=== PATIENT | female | born 1940 | race Caucasian/White ===

== ENCOUNTER 2019-11-21 12:19 | Emergency (ER) | payer MEDICARE ==
[~2019-11-21] VITALS: Ht 152.4 cm; Wt 50.6 kg
[~2019-11-21 12:19] MED LIST: AMLO5TAB PO; ASPI81TA30 PO; CHOL10002 PO; CYAN100019 PO; FOLI1TAB16 PO; HYDR-4383 PO; LACT1CAP65 PO; MONT10TA21 PO; ONDA4TAB6 PO; PRIM50TA PO; THYR120T2 PO
[2019-11-21 13:23] LABS: ALANINE AMINOTRANSFERASE 23 U/L (12-78); ALBUMIN 3.6 G/DL (3.4-5.0); ALBUMIN/GLOBULIN RATIO 0.9 (1.1-1.5); ALKALINE PHOSPHATASE 87 IU/L (46-116); ANION GAP 9 (8-16); ASPARTATE AMINO TRANSFERASE 21 U/L (10-37); BILIRUBIN,TOTAL 0.5 MG/DL (0.1-1.0); BLOOD UREA NITROGEN 13 MG/DL (7-18); BUN/CREATININE RATIO 9.6 (6.6-38.0); CHLORIDE 101 MMOL/L (99-107); CREATININE 1.36 MG/DL (0.40-0.90); GLUCOSE 109 MG/DL (70-104); POTASSIUM 3.5 MMOL/L (3.5-5.1); SODIUM 138 MMOL/L (135-145); TOTAL PROTEIN 7.8 G/DL (6.4-8.2); eGFR 37 ML/MIN
[2019-11-21 13:35] LABS: BASOPHILS % (AUTO) 0.6 % (0-1); EOSINOPHILS # (AUTO) 0.1 X10'3 (0-0.9); EOSINOPHILS % (AUTO) 1.9 % (0-6); HEMATOCRIT 42.6 % (35.0-45.0); HEMOGLOBIN 14.3 g/dl (12.0-16.0); LYMPHOCYTES # (AUTO) 1.4 X10'3 (1.1-4.8); LYMPHOCYTES % (AUTO) 23.8 % (21-51); MEAN CORPUSCULAR HEMOGLOBIN 30.9 PG (27.0-31.0); MEAN CORPUSCULAR HGB CONC 33.5 g/dL (33.0-36.5); MEAN CORPUSCULAR VOLUME 92.2 FL (78-98); MEAN PLATELET VOLUME 9.2 FL (7.4-10.4); MONOCYTES # (AUTO) 0.4 X10'3 (0-0.9); MONOCYTES % (AUTO) 7.5 % (2-12); NEUTROPHILS # (AUTO) 3.9 X10'3 (1.8-7.7); NEUTROPHILS % (AUTO) 66.2 % (42-75); PLATELET COUNT 252 X10'3 (140-440); RED BLOOD COUNT 4.62 X10'6 (4.20-5.60); WHITE BLOOD COUNT 5.9 X10'3 (4.5-11.0)
[2019-11-21 14:02] VITALS: BP 162/72
== END 2019-11-21 14:00 | disposition home or self-care (01) ==
LOC: ER 12:20
DX: I10 Essential (primary) hypertension (principal); E03.9 Hypothyroidism, unspecified; Z87.442 Personal history of urinary calculi; Z79.899 Other long term (current) drug therapy; Z79.82 Long term (current) use of aspirin
CPT/HCPCS: 36415; 71045; 80053; 84484; 85025; 93005; 99285

== ENCOUNTER 2020-02-19 08:00 | Day surgery (SDC) | payer MEDICARE ==
[2020-02-12 15:45] LABS: BASOPHILS % (AUTO) 0.8 % (0-1); EOSINOPHILS % (AUTO) 0.3 % (0-6); LYMPHOCYTES # (AUTO) 1.4 X10'3 (1.1-4.8); LYMPHOCYTES % (AUTO) 30.9 % (21-51); MEAN CORPUSCULAR HEMOGLOBIN 31.8 PG (27.0-31.0); MEAN CORPUSCULAR HGB CONC 33.5 g/dL (33.0-36.5); MEAN PLATELET VOLUME 8.6 FL (7.4-10.4); MONOCYTES # (AUTO) 0.5 X10'3 (0-0.9); MONOCYTES % (AUTO) 11.8 % (2-12); NEUTROPHILS # (AUTO) 2.5 X10'3 (1.8-7.7); NEUTROPHILS % (AUTO) 56.2 % (42-75); PRE OP HEMATOCRIT 39.8 % (35.0-45.0); PRE OP HEMOGLOBIN 13.3 g/dL (12.0-16.0); PRE OP PLATELET COUNT 230 X10'3 (140-440); RED BLOOD COUNT 4.19 X10'6 (4.20-5.60); RED CELL DISTRIBUTION WIDTH 12.9 % (11.5-14.5)
[2020-02-12 16:02] LABS: ALBUMIN 3.9 G/DL (3.4-5.0); ALKALINE PHOSPHATASE 80 IU/L (46-116); BLOOD UREA NITROGEN 14 MG/DL (7-18); BUN/CREATININE RATIO 12.5 (6.6-38.0); CALCIUM 8.9 MG/DL (8.5-10.1); CHLORIDE 101 MMOL/L (99-107); CREATININE 1.12 MG/DL (0.40-0.90); PRE OP ALT 25 U/L (30-65); PRE OP ANION GAP 6 (8-16); PRE OP AST 24 U/L (10-37); PRE OP BILIRUB, TOTAL 0.5 MG/DL (0.0-1.0); PRE OP GLUCOSE 94 MG/DL (70-104); PRE OP POTASSIUM 4.3 MMOL/L (3.4-5.1); PRE OP SODIUM 137 MMOL/L (135-145); TOTAL CARBON DIOXIDE 30.1 MMOL/L (24-32); TOTAL PROTEIN 7.9 G/DL (6.4-8.2); eGFR 47 ML/MIN
[~2020-02-19] VITALS: Ht 152.4 cm; Wt 50.9 kg
[~2020-02-19 08:00] MED LIST changes: -ASPI81TA30 PO; +BUPIVAcaine/PF 2.5 mg/ml (0.25%) 30ml vial ONE; +CETI10CA19 PO; -CHOL10002 PO; -CYAN100019 PO; -FOLI1TAB16 PO; -HYDR-4383 PO; +INHALER; +LEVO25TA7 PO; -MONT10TA21 PO; -ONDA4TAB6 PO; -PRIM50TA PO; +SULF500T46 PO; +SUMA25TA9 PO; -THYR120T2 PO; +TRAZ-251 PO; +[UNRECOGNIZED DRUG - CODE]; +ceFAZolin 2gm in dextrose, iso 50 ML IV ONE; +famotidine 10mg tablet PO ONE; +ringers solution, lacted 1,000 ML IV SCH
[2020-02-19] MEDS ORDERED: morphine 2 MG/ML inj. syringe IV PRN (08:25)
[2020-02-19] MEDS ORDERED: proCHLORperazine 10 MG/2 ml inj IV PRN (08:25)
[2020-02-19] MEDS ORDERED: ringers solution, lacted 1,000 ML IV SCH (08:25)
[2020-02-19] MEDS ORDERED: meperidine/PF 25mg/ml syringe IV PRN ×2 (08:25)
[2020-02-19] MEDS ORDERED: ondansetron/PF 4mg/2ml inj IV PRN (08:25)
[2020-02-19] MEDS ORDERED: LIDOcaine 0.5% (5mg/ml) 50ml vial ONE (11:27)
[2020-02-19] MEDS ORDERED: fentaNYL/PF 50MCG/1 ML 2ML syringe ONE (11:28)
[2020-02-19] MEDS ORDERED: propofol inj 20 ML IV ONE (11:48)
[2020-02-19 11:51] VITALS: BP 154/77
[2020-02-19 11:57] VITALS: BP 154/77
[2020-02-19 12:02] VITALS: BP 162/80
--- NOTE | 2020-02-19 12:02 | NUR ---
Received from OR via , accompanied by Anesthesiologist DR AGGARWAL and report given by Anesthesiolgist. AWAKENS TO VOICE. VITALS STABLE.ENZO PAIN. FINGERS COOL AND PINK.DRESSING DI.
[2020-02-19 12:12] VITALS: BP 153/76
[2020-02-19 12:22] VITALS: BP 167/79
[2020-02-19 12:32] VITALS: BP 165/78
--- NOTE | 2020-02-19 12:42 | NUR ---
AWAKE AND ORIENTED. VITALS STABLE. DRESSING DI. ENZO PAIN. HOME WITH HER SON AT TGHIS TIME.
== END 2020-02-19 12:42 | disposition home or self-care (01) ==
LOC: PAS 08:00
PROVIDERS: ATTEND Orthopaedic Surgery Hand Surgery
DX: G56.01 Carpal tunnel syndrome, right upper limb (principal); J45.909 Unspecified asthma, uncomplicated; I10 Essential (primary) hypertension; M18.12 Unilateral primary osteoarthritis of first carpometacarpal joint, left hand; E03.9 Hypothyroidism, unspecified; Z88.8 Allergy status to other drugs, medicaments and biological substances; Z91.09 Other allergy status, other than to drugs and biological substances; Z91.011 Allergy to milk products; Z98.890 Other specified postprocedural states; Z79.899 Other long term (current) drug therapy; Z20.828 Contact with and (suspected) exposure to other viral communicable diseases; Z87.891 Personal history of nicotine dependence; Z79.82 Long term (current) use of aspirin; Z88.2 Allergy status to sulfonamides; Z90.710 Acquired absence of both cervix and uterus; Z72.89 Other problems related to lifestyle
CPT/HCPCS: 36415; 64721; 80053; 82948; 85025; 87635; A6222; J2001; J2704; J3010; J3490; A4215; A6449; J7120

== ENCOUNTER 2020-03-18 08:04 | Day surgery (SDC) | payer MEDICARE ==
[2020-03-11 15:19] LABS: EOSINOPHILS % (AUTO) 0 % (0-6); LYMPHOCYTES # (AUTO) 1.4 X10'3 (1.1-4.8); MONOCYTES # (AUTO) 0.6 X10'3 (0-0.9); NEUTROPHILS # (AUTO) 3.5 X10'3 (1.8-7.7); NEUTROPHILS % (AUTO) 63.1 % (42-75)
[2020-03-11 15:21] LABS: BASOPHILS # (AUTO) 0.1 X10'3 (0-0.2); BASOPHILS % (AUTO) 0.9 % (0-1); LYMPHOCYTES % (AUTO) 25.6 % (21-51); MEAN CORPUSCULAR HEMOGLOBIN 32.3 PG (27.0-31.0); MEAN CORPUSCULAR HGB CONC 33.8 g/dL (33.0-36.5); MEAN CORPUSCULAR VOLUME 95.6 FL (78-98); MEAN PLATELET VOLUME 8.8 FL (7.4-10.4); MONOCYTES % (AUTO) 10.4 % (2-12); PRE OP HEMATOCRIT 41.1 % (35.0-45.0); PRE OP HEMOGLOBIN 13.9 g/dL (12.0-16.0); PRE OP PLATELET COUNT 233 X10'3 (140-440); RED CELL DISTRIBUTION WIDTH 12.9 % (11.5-14.5)
[2020-03-11 15:32] LABS: ALKALINE PHOSPHATASE 87 IU/L (46-116); BLOOD UREA NITROGEN 9 MG/DL (7-18); BUN/CREATININE RATIO 7.8 (6.6-38.0); CALCIUM 8.9 MG/DL (8.5-10.1); CHLORIDE 101 MMOL/L (99-107); CREATININE 1.16 MG/DL (0.40-0.90); PRE OP ALT 20 U/L (30-65); PRE OP ANION GAP 6 (8-16); PRE OP AST 20 U/L (10-37); PRE OP BILIRUB, TOTAL 0.6 MG/DL (0.0-1.0); PRE OP GLUCOSE 93 MG/DL (70-104); PRE OP POTASSIUM 3.4 MMOL/L (3.4-5.1); PRE OP SODIUM 137 MMOL/L (135-145); TOTAL CARBON DIOXIDE 29.6 MMOL/L (24-32); TOTAL PROTEIN 8.2 G/DL (6.4-8.2); eGFR 45 ML/MIN
[~2020-03-18] VITALS: Ht 177.8 cm; Wt 51.2 kg
[2020-03-18] VITALS (7 sets, daily range): BP systolic 156–170; BP diastolic 80–91
[~2020-03-18 08:04] MED LIST changes: -famotidine 10mg tablet PO ONE; +famotidine 20mg tablet PO ONE
[2020-03-18] MEDS ORDERED: ondansetron/PF 4mg/2ml inj IV PRN (12:10)
[2020-03-18] MEDS ORDERED: morphine 2 MG/ML inj. syringe IV PRN (12:10)
[2020-03-18] MEDS ORDERED: morphine 4 MG/ML inj SYRINge IV PRN (12:10)
[2020-03-18] MEDS ORDERED: meperidine/PF 25mg/ml syringe IV PRN ×3 (12:10)
[2020-03-18] MEDS ORDERED: ringers solution, lacted 1,000 ML IV SCH (12:10)
[2020-03-18] MEDS ORDERED: proCHLORperazine 10 MG/2 ml inj IV PRN (12:10)
[2020-03-18] MEDS ORDERED: fentaNYL/PF 50MCG/1 ML 2ML syringe ONE (12:24)
[2020-03-18] MEDS ORDERED: midazolam 2 mg/2 ml injection ONE (12:24)
[2020-03-18] MEDS ORDERED: LIDOcaine 1% 30ml preserv. free vial ONE (12:25)
[2020-03-18] MEDS ORDERED: ondansetron/PF 4mg/2ml inj ONE (13:01)
[2020-03-18] MEDS ORDERED: ketorolac trometh. 30mg/ml inj. ONE (13:01)
--- NOTE | 2020-03-18 13:22 | NUR ---
Received from OR via , accompanied by Anesthesiologist DR PALMER and report given by Anesthesiolgist. AWAKENS TO VOICE. VITALS STABLE. DRESSING DI. ENZO PAIN. FINGERS WARM AND PINK.
--- NOTE | 2020-03-18 14:23 | NUR ---
AWAKE AND ORIENTED. VITALS STABLE. DRESSING DI. ENZO PAIN. HOME WITH HER SISTER AT THIS TIME.
== END 2020-03-18 14:23 | disposition home or self-care (01) ==
LOC: PAS 08:04
PROVIDERS: ATTEND Orthopaedic Surgery Hand Surgery
DX: G56.02 Carpal tunnel syndrome, left upper limb (principal); M65.342 Trigger finger, left ring finger; J45.909 Unspecified asthma, uncomplicated; I10 Essential (primary) hypertension; E03.9 Hypothyroidism, unspecified; M19.90 Unspecified osteoarthritis, unspecified site; Z20.828 Contact with and (suspected) exposure to other viral communicable diseases; Z98.890 Other specified postprocedural states; Z87.891 Personal history of nicotine dependence; Z91.011 Allergy to milk products; Z88.8 Allergy status to other drugs, medicaments and biological substances; Z88.2 Allergy status to sulfonamides; Z79.899 Other long term (current) drug therapy
CPT/HCPCS: 26055; 36415; 64721; 80053; 82948; 85025; 87635; J1885; J2001; J2250; J2405; J3010; J3490; A4215; J7120

== ENCOUNTER 2023-02-16 14:08 | Emergency (ER) | payer MEDICARE ==
[~2023-02-16] VITALS: Ht 152.4 cm; Wt 58.2 kg
[~2023-02-16 14:08] MED LIST changes: -BUPIVAcaine/PF 2.5 mg/ml (0.25%) 30ml vial ONE; -ceFAZolin 2gm in dextrose, iso 50 ML IV ONE; -famotidine 20mg tablet PO ONE; -ringers solution, lacted 1,000 ML IV SCH
[2023-02-16 14:15] VITALS: TEMP 98
[2023-02-16 15:36] LABS: BASOPHILS # (AUTO) 0.1 X10'3 (0-0.2); BASOPHILS % (AUTO) 0.8 % (0-1); EOSINOPHILS # (AUTO) 0.3 X10'3 (0-0.9); EOSINOPHILS % (AUTO) 4.4 % (0-6); HEMATOCRIT 37.3 % (35.0-45.0); HEMOGLOBIN 12.4 g/dl (12.0-16.0); LYMPHOCYTES # (AUTO) 1.8 X10'3 (1.1-4.8); LYMPHOCYTES % (AUTO) 23.5 % (21-51); MEAN CORPUSCULAR HEMOGLOBIN 31.5 PG (27.0-31.0); MEAN CORPUSCULAR HGB CONC 33.2 g/dL (33.0-36.5); MEAN PLATELET VOLUME 9.2 FL (7.4-10.4); MONOCYTES # (AUTO) 0.6 X10'3 (0-0.9); MONOCYTES % (AUTO) 7.9 % (2-12); NEUTROPHILS # (AUTO) 4.9 X10'3 (1.8-7.7); NEUTROPHILS % (AUTO) 63.4 % (42-75); PLATELET COUNT 197 X10'3 (140-440); RED BLOOD COUNT 3.92 X10'6 (4.20-5.60); RED CELL DISTRIBUTION WIDTH 13.3 % (11.5-14.5); WHITE BLOOD COUNT 7.7 X10'3 (4.5-11.0)
[2023-02-16 15:52] LABS: ALANINE AMINOTRANSFERASE 25 U/L (12-78); ALBUMIN 3.5 G/DL (3.4-5.0); ALBUMIN/GLOBULIN RATIO 0.9 (1.1-1.5); ALKALINE PHOSPHATASE 60 IU/L (46-116); ANION GAP 7 (8-16); ASPARTATE AMINO TRANSFERASE 21 U/L (10-37); BILIRUBIN,TOTAL 0.5 MG/DL (0.1-1.0); BLOOD UREA NITROGEN 17 MG/DL (7-18); BUN/CREATININE RATIO 12.4 (10.0-20.0); CALCIUM 9.1 MG/DL (8.5-10.1); CHLORIDE 103 MMOL/L (99-107); CREATININE 1.37 MG/DL (0.40-0.90); GLUCOSE 101 MG/DL (70-104); POTASSIUM 4.4 MMOL/L (3.5-5.1); SODIUM 137 MMOL/L (135-145); TOTAL CARBON DIOXIDE 27.4 MMOL/L (24-32); TOTAL PROTEIN 7.2 G/DL (6.4-8.2); eCRCL 22 ML/MIN; eGFR 37 ML/MIN
[2023-02-16] MEDS ORDERED: ondansetron/PF 4mg/2ml inj IV ONE (16:40)
[2023-02-16] MEDS ORDERED: morphine 4 MG/ML inj SYRINge IV ONE (16:40)
[2023-02-16] MEDS ORDERED: iohexol 300mg/ml 100ml inj. ONE (16:44)
[2023-02-16] MEDS ORDERED: OXYC-145 PO (18:21)
[2023-02-16 18:50] VITALS: BP 172/68; PULSE 55; RESP 16; O2SAT 95
--- NOTE | 2023-02-16 19:13 | NUR ---
[employer] ASSESSMENT REVIEWED BY TRAVIS RN, APPROVED
== END 2023-02-16 18:45 | disposition home or self-care (01) ==
LOC: ER 14:09
DX: M25.552 Pain in left hip (principal); R07.81 Pleurodynia; R10.32 Left lower quadrant pain; I10 Essential (primary) hypertension; E03.9 Hypothyroidism, unspecified; Z88.8 Allergy status to other drugs, medicaments and biological substances; Z88.6 Allergy status to analgesic agent; Z91.09 Other allergy status, other than to drugs and biological substances; Z79.1 Long term (current) use of non-steroidal anti-inflammatories (NSAID); Z79.899 Other long term (current) drug therapy; Z87.891 Personal history of nicotine dependence; W19.XXXA Unspecified fall, initial encounter; Y93.89 Activity, other specified; Y92.89 Other specified places as the place of occurrence of the external cause; Y99.8 Other external cause status
CPT/HCPCS: 36415; 71100; 71260; 74177; 80053; 85025; 96374; 96375; 99285; J2270; J2405; J3490; Q9967

== ENCOUNTER 2023-09-10 13:55 | Emergency (ER) | payer MEDICARE ==
[~2023-09-10] VITALS: Ht 152.4 cm; Wt 55.0 kg
[~2023-09-10 13:55] MED LIST changes: +OXYC-145 PO
[2023-09-10 13:57] VITALS: BP 149/42; PULSE 57; RESP 18; TEMP 98.5; O2SAT 95
== END 2023-09-10 15:45 | disposition home or self-care (01) ==
LOC: ER 13:55
DX: M25.551 Pain in right hip (principal); I10 Essential (primary) hypertension; E03.9 Hypothyroidism, unspecified; Z88.8 Allergy status to other drugs, medicaments and biological substances; Z88.6 Allergy status to analgesic agent; Z79.899 Other long term (current) drug therapy
CPT/HCPCS: 73502; 99283

== ENCOUNTER 2023-11-12 15:34 | Emergency (ER) | payer MEDICARE | END 2023-11-12 16:26 | disposition left against medical advice (07) | LOC: ER 15:35 | DX: Z04.3 Encounter for examination and observation following other accident (principal); Z53.21 Procedure and treatment not carried out due to patient leaving prior to being seen by health care provider; W19.XXXA Unspecified fall, initial encounter; Y93.89 Activity, other specified; Y92.89 Other specified places as the place of occurrence of the external cause; Y99.8 Other external cause status ==

== ENCOUNTER 2024-07-17 17:30 | Emergency (ER) | payer MEDICARE, OTHER ==
[~2024-07-17] VITALS: Ht 152.4 cm; Wt 64.1 kg
[2024-07-17 20:31] VITALS: BP 191/63; PULSE 60; TEMP 97.7; O2SAT 97
[2024-07-17] MEDS ORDERED: HYDR-3965 PO (20:36)
[2024-07-17] MEDS: HYDROcodone/acetaminophen 10/325mg tab PO ONE (20:57)
[2024-07-17 21:13] VITALS: RESP 16
== END 2024-07-17 21:11 | disposition home or self-care (01) ==
LOC: ER 17:31
DX: S42.92XA Fracture of left shoulder girdle, part unspecified, initial encounter for closed fracture (principal); M54.2 Cervicalgia; I10 Essential (primary) hypertension; E03.9 Hypothyroidism, unspecified; Z88.5 Allergy status to narcotic agent; Z88.6 Allergy status to analgesic agent; Z79.899 Other long term (current) drug therapy; Z87.442 Personal history of urinary calculi; W01.0XXA Fall on same level from slipping, tripping and stumbling without subsequent striking against object, initial encounter; Y93.89 Activity, other specified; Y92.89 Other specified places as the place of occurrence of the external cause; Y99.8 Other external cause status
CPT/HCPCS: 70450; 72125; 73030; 99284; L0172; A4565